=== PATIENT | male | born 1965 | race Caucasian/White ===

== ENCOUNTER → 2021-12-14 | Outpatient (CLI) | payer BC ==
[2021-12-14 17:56] LABS: Basophils # (A) 0.12 X 10*3/uL (0.00-0.10); Basophils % (A) 0.9 %; Eosinophils # (A) 0.23 X 10*3/uL (0.04-0.35); Eosinophils % (A) 1.7 %; HCT 49.4 % (39.6-50.0); HGB 16.6 g/dL (13.0-17.0); Immature Grans, Automated 0.3 %; Lymphocytes # (A) 2.63 X 10*3/uL (0.90-5.00); MCH 34.1 pg (27.0-32.0); MCHC 33.6 g/dL (32.0-37.0); MCV 101.4 fL (80.0-97.0); Mean Platelet Volume 9.9 fL (9.5-12.2); Monocytes % (A) 5.3 %; NRBC Per 100 WBC 0 /100 WBCS (0.0-0.0); Neutrophils # (A) 9.43 X 10*3/uL (1.80-7.70); Neutrophils % (A) 71.8 %; Platelet Count 268 X 10*3/uL (140-440); RBC 4.87 X 10*6/uL (4.40-5.60); RDW 13.1 % (11.5-14.5); WBC 13.15 X 10*3/uL (4.50-10.00)
[2021-12-14 18:16] LABS: % Iron Saturation 31.39 (15.00-50.00); Albumin 4.5 g/dL (3.8-4.9); Albumin/Globulin Ratio 1.55 (1.60-3.17); Anion Gap 11.5 mmol/L (10.00-18.00); BUN/Creat Ratio 10.4 Ratio (12.00-20.00); Blood Urea Nitrogen 15.6 mg/dL (9.0-27.0); Calcium 9.2 mg/dL (8.7-10.3); Carbon Dioxide 24.5 mmol/L (20.0-27.5); Globulin 2.9 g/dL (1.6-3.3); Magnesium 2.2 mg/dL (1.5-2.4); Non-African American GFR(CKD) 50.9 (60.0-200.0); Potassium 4.1 mmol/L (3.5-5.5); Total Bilirubin 0.8 mg/dL (0.30-1.20); Total Protein 7.4 g/dL (6.2-8.2); Uric Acid 5.6 mg/dL (3.7-8.7)
[2021-12-14 21:33] LABS: Microalbumin Creatinine Ratio <30 mg/g Creat (0-30); Urine Creatinine 51.1 mg/dL (39.0-259.0)
[2021-12-15 14:25] LABS: T4/T8 Ratio (CD4:CD8) 2.2 (1.0-3.7)
== END | disposition home or self-care (01) ==
LOC: LABWHC1 12:38
PROVIDERS: ATTEND Internal Medicine Infectious Disease
DX: N18.31 Chronic kidney disease, stage 3a (principal); B20 Human immunodeficiency virus [HIV] disease
CPT/HCPCS: 36415; 80053; 82043; 82306; 82570; 82728; 83540; 83550; 83735; 83970; 84100; 84550; 85025; 86334; 86335; 86360; 87536

== ENCOUNTER → 2022-01-04 | Outpatient (CLI) | payer BC ==
--- NOTE | 2022-01-04 11:38 | US ---
EXAMINATION TYPE: US kidneys/renal and bladder DATE OF EXAM: 01/04/2022 COMPARISON: NONE CLINICAL HISTORY: N18.31 STAGE 3 CKD. EXAM MEASUREMENTS: Right Kidney: 13.3 x 7.6 x 6.6 cm Left Kidney: 16.4 x 6.2 x 6.1 cm Right Kidney: Multiple scattered cysts obscuring normal renal tissue. Some of the cysts demonstrates hypoechogenicity the largest measuring up to 4.1 x 2.9 cm. Largest three measured: 1. Upper 6.0 x 5.8 x 6.3cm 2. Mid/lateral 6.9 x 7.1 x 6.5cm 3. Lower with septations 4.6 x 4.8 x 6.1cm Left Kidney: Multiple scattered cysts obscuring normal renal tissue. Largest 2 measured: 1. Medial with septations 14.6 x 9.6 x 12.0cm 2. Upper 7.9 x 6.4 x 8.4cm Bladder: wnl Bilateral Jets seen: Yes There is no evidence for hydronephrosis at this point in time. No nephrolithiasis is seen. The urin wero bladder is anechoic. Bilateral ureteral jets are seen. IMPRESSION: 1. Hypoechoic cysts seen within the right kidney which are indeterminate. Further evaluation with MR I with IV contrast is recommended. 2. Multiple anechoic renal cysts bilaterally.
== END | disposition home or self-care (01) ==
LOC: RADUSWWP 10:00
PROVIDERS: ATTEND Internal Medicine Nephrology
DX: N18.31 Chronic kidney disease, stage 3a (principal)
CPT/HCPCS: 76770

== ENCOUNTER → 2022-05-02 | Outpatient (CLI) | payer BC ==
[2022-05-02 12:54] LABS: Appearance,Urine Clear (Clear); Bilirubin,Urine Negative (Negative); Blood,Urine Trace (Negative); Color,Urine Yellow; Glucose,Urine (UA) Negative (Negative); Ketones,Urine Negative (Negative); Leukocyte Esterase,Urine Negative (Negative); Nitrite,Urine Negative (Negative); Protein,Urine Negative (Negative); RBC,Urine 3 /hpf (0-5); Specific Gravity,Urine 1.015 (1.001-1.035); Urobilinogen,Urine <2.0 mg/dL (<2.0); WBC,Urine 1 /hpf (0-5)
[2022-05-02 18:38] LABS: Basophils # (A) 0.12 X 10*3/uL (0.00-0.10); Basophils % (A) 1.4 %; Eosinophils # (A) 0.46 X 10*3/uL (0.04-0.35); Eosinophils % (A) 5.4 %; HGB 16.8 g/dL (13.0-17.0); Immature Grans, Automated 0.1 %; Lymphocytes % (A) 36.6 %; MCH 32.6 pg (27.0-32.0); MCHC 32.9 g/dL (32.0-37.0); MCV 98.8 fL (80.0-97.0); Mean Platelet Volume 10.2 fL (9.5-12.2); Monocytes # (A) 0.67 X 10*3/uL (0.20-1.00); Monocytes % (A) 7.9 %; NRBC Per 100 WBC 0 /100 WBCS (0.0-0.0); Neutrophils # (A) 4.11 X 10*3/uL (1.80-7.70); Neutrophils % (A) 48.6 %; Platelet Count 233 X 10*3/uL (140-440); RBC 5.16 X 10*6/uL (4.40-5.60); RDW 12.4 % (11.5-14.5); WBC 8.47 X 10*3/uL (4.50-10.00)
[2022-05-02 19:02] LABS: ALT 24 U/L (10-49); AST 19 U/L (14-35); African American GFR (CKD) 50.8 (60.0-200.0); Albumin 4.6 g/dL (3.8-4.9); Albumin/Globulin Ratio 1.77 (1.60-3.17); Alkaline Phosphatase 68 U/L (41-126); BUN/Creat Ratio 10.76 Ratio (12.00-20.00); Blood Urea Nitrogen 18.3 mg/dL (9.0-27.0); Calcium 9.5 mg/dL (8.7-10.3); Chloride 103 mmol/L (96-109); Chol/HDL Ratio 2.59 Ratio; Globulin 2.6 g/dL (1.6-3.3); Glucose 88 mg/dL (70-110); LDL Cholesterol,Calculated 52.8 mg/dL (0.0-131.0); Non-African American GFR(CKD) 43.8 (60.0-200.0); Potassium 4.9 mmol/L (3.5-5.5); Sodium 138 mmol/L (135-145); Total Protein 7.2 g/dL (6.2-8.2); VLDL Calculation 15.34 mg/dL (5.00-40.00)
[2022-05-02 20:06] LABS: Microalbumin Creatinine Ratio <30 mg/g Creat (0-30)
[2022-05-03 12:43] LABS: Free Kappa Lt Chain Qnt, Serum 4.85 mg/dL (0.33-1.94); Free Lambda Lt Chain Qnt, Seru 3.12 mg/dL (0.57-2.63)
== END | disposition home or self-care (01) ==
LOC: LABWHC1 11:32
PROVIDERS: ATTEND Nurse Practitioner Family
DX: Z12.5 Encounter for screening for malignant neoplasm of prostate (principal); I12.9 Hypertensive chronic kidney disease with stage 1 through stage 4 chronic kidney disease, or unspecified chronic kidney disease; N18.31 Chronic kidney disease, stage 3a; N39.0 Urinary tract infection, site not specified; B20 Human immunodeficiency virus [HIV] disease; R80.9 Proteinuria, unspecified
CPT/HCPCS: 36415; 80053; 80061; 81001; 82043; 82570; 83883; 84153; 84443; 85025; 86334; 86335

== ENCOUNTER → 2022-07-12 | Outpatient (CLI) | payer BC ==
--- NOTE | 2022-07-12 14:29 | CT ---
EXAMINATION TYPE: CT abdomen wo con CT DLP: 493.9 mGycm, Automated exposure control for dose reduction was used. DATE OF EXAM: 07/12/2022 12:50 PM COMPARISON: None. 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 Sagittal and coronal reformats were created on a separate works tation. Contrast used: None Oral contrast used: without Oral Contrast FINDINGS: LOWER CHEST: Unremarkable ABDOMEN LIVER: Unremarkable GALLBLADDER AND BILE DUCTS: Layering increased densities within the lumen consistent with gallstones are present. PANCREAS: Unremarkable. SPLEEN: Unremarkable. ADRENAL GLANDS: Unremarkable. KIDNEYS AND URETERS: No evidence of hydronephrosis or renal calculus. The ureters are unremarkable. Bilateral renal cysts are present which are suboptimally evaluated on noncontrast exam. The largest m easuring up to 7.8 cm on the right and 8.1 cm on the left. There is at least one calcification presen t in the right kidney which could be within the cyst wall. STOMACH AND BOWEL: Moderate hiatal hernia. No evidence of bowel obstruction. Scattered colonic divert icula. The appendix is normal. PERITONEUM/RETROPERITONEUM: No evidence of pneumoperitoneum or free fluid. VASCULATURE: Mild atherosclerotic calcifications are present throughout the abdominal aorta and its b ranches. No evidence of aortic aneurysm. MUSCULOSKELETAL: No acute osseous abnormalities. Mild disc degeneration changes are present throughou t the thoracolumbar spine. LYMPH NODES: No gross evidence for lymphadenopathy. SOFT TISSUE/ABDOMINAL WALL: Unremarkable IMPRESSION: 1. Bilateral renal cysts which are suboptimally evaluated on this noncontrast CT. Consider MRI renal mass protocol for initial screening/surveillance. No obstructive uropathy. 2. Small hiatal hernia. 3. Colonic diverticulosis.
--- NOTE | 2022-07-13 20:58 | MR ---
EXAMINATION TYPE: MR angio head wo/neck wo/w con DATE OF EXAM: 07/12/2022 2:55 PM CLINICAL INDICATION:Male, 56 years old with history of Q61.2 POLYCYSTIC KIDNEY; Aneurysm COMPARISON: None Technical: MRA brain: 3-D [id number] Axial with MIP and 3-D reconstruction. Performed on a separate workstat ion. MRA neck: Multiplanar, multi-sequence imaging as well as [id number] and phase was performed extra cranial vasculature of the neck. 3-D reformatted images and maximum intensity projection reformatted images were submitted for evaluation, these are performed on a separate workstation. IV Contrast: 9 cc Gadavist Findings: Vertebral arteries: The vertebral arteries are patent. Codominant vertebral artery is dominant. Basilar artery: The basilar artery is intact. The basilar artery bifurcation is normal. Internal Carotid arteries: The cervical, petrous, cavernous and supraclinoid segments are normal. RADHA: Patent with no evidence of aneurysm. ACOM: Present without evidence of aneurysm. MCA: Patent with no evidence of aneurysm. [employer]: Patent with no evidence of aneurysm. PCOM: Hypoplastic bilaterally. RIGHT CAROTID SYSTEM: The common carotid artery is patent. The carotid bifurcations demonstrates no e vidence for hemodynamically significant stenosis. The internal carotid artery is patent. LEFT CAROTID SYSTEM: The common carotid artery is patent. The carotid bifurcations demonstrates no e vidence for hemodynamically significant stenosis. The internal carotid artery is patent. The origins of the great vessels and vertebral arteries appear unremarkable. IMPRESSION: 1. No evidence of intracranial aneurysm or significant stenosis. 2. No evidence of significant stenosis at the carotid bifurcations. The carotid and vertebral arteri es are patent. 3. No evidence aneurysm.
== END | disposition home or self-care (01) ==
LOC: RADCTMAIN 12:34
PROVIDERS: ATTEND Internal Medicine Nephrology
DX: K44.9 Diaphragmatic hernia without obstruction or gangrene (principal); Q61.2 Polycystic kidney, adult type; K57.30 Diverticulosis of large intestine without perforation or abscess without bleeding
CPT/HCPCS: 74150; 70544; 70549; A9585

== ENCOUNTER → 2022-08-31 | Outpatient (CLI) | payer BC ==
[2022-09-01 02:18] LABS: Basophils # (A) 0.15 X 10*3/uL (0.00-0.10); Basophils % (A) 1.5 %; Eosinophils # (A) 0.37 X 10*3/uL (0.04-0.35); Eosinophils % (A) 3.7 %; HCT 51.8 % (39.6-50.0); HGB 16.8 g/dL (13.0-17.0); Immature Grans, Automated 0.2 %; Lymphocytes # (A) 2.45 X 10*3/uL (0.90-5.00); Lymphocytes % (A) 24.5 %; MCH 32.4 pg (27.0-32.0); MCHC 32.4 g/dL (32.0-37.0); MCV 99.8 fL (80.0-97.0); Mean Platelet Volume 10.1 fL (9.5-12.2); Monocytes # (A) 0.55 X 10*3/uL (0.20-1.00); Monocytes % (A) 5.5 %; NRBC Per 100 WBC 0 /100 WBCS (0.0-0.0); Neutrophils # (A) 6.46 X 10*3/uL (1.80-7.70); Neutrophils % (A) 64.6 %; Platelet Count 259 X 10*3/uL (140-440); RBC 5.19 X 10*6/uL (4.40-5.60); RDW 11.9 % (11.5-14.5)
[2022-09-01 02:30] LABS: % Iron Saturation 21.95 (15.00-50.00)
[2022-09-01 02:39] LABS: African American GFR (CKD) 50.8 (60.0-200.0); Albumin 4.6 g/dL (3.8-4.9); Albumin/Globulin Ratio 1.65 (1.60-3.17); Anion Gap 12.8 mmol/L (10.00-18.00); BUN/Creat Ratio 11.29 Ratio (12.00-20.00); Blood Urea Nitrogen 19.2 mg/dL (9.0-27.0); Calcium 9.9 mg/dL (8.7-10.3); Carbon Dioxide 21.7 mmol/L (20.0-27.5); Globulin 2.8 g/dL (1.6-3.3); Magnesium 2.1 mg/dL (1.5-2.4); Non-African American GFR(CKD) 43.8 (60.0-200.0); Phosphorus 2.8 mg/dL (2.4-5.1); Potassium 4.2 mmol/L (3.5-5.5); Total Bilirubin 0.6 mg/dL (0.30-1.20); Total Protein 7.3 g/dL (6.2-8.2)
[2022-09-01 04:14] LABS: Appearance,Urine Clear (Clear); Bilirubin,Urine Negative (Negative); Blood,Urine Negative (Negative); Color,Urine Yellow (Yellow); Ketones,Urine Negative (Negative); Nitrite,Urine Negative (Negative); PH, Urine 5.5 (5.0-8.0); Specific Gravity,Urine 1.017 (1.001-1.030); Urobilinogen,Urine 0.2 (0.2,1.0)
[2022-09-01 12:16] LABS: T4/T8 Ratio (CD4:CD8) 2.1 (1.0-3.7)
[2022-09-01 14:21] LABS: HIV-1 RNA DETECTED (Not detected); HIV-1 RNA, Quant 33 Copies/mL (<20); LOG HIV Copies/mL 1.52 (<1.30)
== END | disposition home or self-care (01) ==
LOC: LABWHC1 15:08
PROVIDERS: ATTEND Internal Medicine Infectious Disease
DX: B20 Human immunodeficiency virus [HIV] disease (principal); N18.31 Chronic kidney disease, stage 3a; E55.9 Vitamin D deficiency, unspecified; N25.81 Secondary hyperparathyroidism of renal origin; M10.9 Gout, unspecified; N39.0 Urinary tract infection, site not specified; D63.1 Anemia in chronic kidney disease
CPT/HCPCS: 36415; 80053; 81003; 82043; 82570; 82728; 83540; 83550; 83735; 83970; 84100; 85025; 86360; 87536

== ENCOUNTER → 2023-01-01 | Outpatient (CLI) | payer BC ==
[2023-01-01 16:27] LABS: Appearance,Urine Clear (Clear); Bilirubin,Urine Negative (Negative); Blood,Urine Negative (Negative); Color,Urine Yellow (Yellow); Ketones,Urine Negative (Negative); Nitrite,Urine Negative (Negative); PH, Urine 5.5; Specific Gravity,Urine 1.018 (1.001-1.030); Urobilinogen,Urine 0.2 E.U./DL
[2023-01-01 16:39] LABS: % Iron Saturation 29.41 (15.00-50.00); Albumin 4.2 d/dL (3.8-4.9); BUN/Creat Ratio 10.69 Ratio (12.00-20.00); Blood Urea Nitrogen 17.1 mg/dL (9.0-27.0); Calcium 9.4 mg/dL (8.7-10.3); Carbon Dioxide 24.1 mmol/L (21.6-31.8); Chloride 108 mmol/L (96-109); Glucose 87 mg/dL (70-110); Iron 95 UG/DL (65-175); Potassium 4.4 mmol/L (3.5-5.5); Sodium 142 mmol/L (135-145); Total Iron Binding Capacity 323 UG/DL (228-460); Uric Acid 5.8 mg/dL (3.7-8.7)
[2023-01-01 17:10] LABS: Basophils # (A) 0.12 X 10*3/uL (0.00-0.10); Basophils % (A) 1.3 %; Eosinophils % (A) 5.6 %; HCT 50.1 % (39.6-50.0); HGB 16.6 d/dL (13.0-17.0); Lymphocytes # (A) 3.54 X 10*3/uL (0.90-5.00); Lymphocytes % (A) 39.4 %; MCH 33.1 pg (27.0-32.0); MCHC 33.1 d/dL (32.0-37.0); MCV 99.8 FL (80.0-97.0); Mean Platelet Volume 10.5 FL (9.5-12.2); Monocytes # (A) 0.54 X 10*3/uL (0.20-1.00); NRBC Per 100 WBC 0 X 10*3/uL (0.00-0.01); Neutrophils # (A) 4.26 X 10*3/uL (1.80-7.70); Neutrophils % (A) 47.5 %; Platelet Count 236 X 10*3/uL (140-440); RBC 5.02 X 10*6/uL (4.40-5.60); RDW 11.9 % (11.5-14.5); WBC 8.98 X 10*3/uL (4.50-10.00)
[2023-01-01 21:46] LABS: Microalbumin Creatinine Ratio <9 mg/g Cr (0-30)
== END | disposition home or self-care (01) ==
LOC: LABWHC1 12:23
PROVIDERS: ATTEND Internal Medicine Nephrology
DX: E55.9 Vitamin D deficiency, unspecified (principal); N18.31 Chronic kidney disease, stage 3a; M10.9 Gout, unspecified; D63.1 Anemia in chronic kidney disease; R80.9 Proteinuria, unspecified
CPT/HCPCS: 36415; 80048; 81003; 82040; 82043; 82306; 82570; 82728; 83540; 83550; 84550; 85025

== ENCOUNTER → 2023-05-21 | Outpatient (CLI) | payer OTHER ==
[2023-05-21 15:10] LABS: Basophils # (A) 0.09 X 10*3/uL (0.00-0.10); Basophils % (A) 0.8 %; Eosinophils # (A) 0.41 X 10*3/uL (0.04-0.35); Eosinophils % (A) 3.6 %; HCT 50.8 % (39.6-50.0); HGB 17.4 g/dL (13.0-17.0); Lymphocytes # (A) 4.29 X 10*3/uL (0.90-5.00); Lymphocytes % (A) 37.7 %; MCH 31.6 pg (27.0-32.0); MCHC 34.3 g/dL (32.0-37.0); MCV 92.2 FL (80.0-97.0); Mean Platelet Volume 10.2 FL (9.5-12.2); Monocytes # (A) 0.73 X 10*3/uL (0.20-1.00); Monocytes % (A) 6.4 %; NRBC Per 100 WBC 0 X 10*3/uL (0.00-0.01); Neutrophils # (A) 5.83 X 10*3/uL (1.80-7.70); Neutrophils % (A) 51.3 %; Platelet Count 231 X 10*3/uL (140-440); RBC 5.51 X 10*6/uL (4.40-5.60); RDW 13.9 % (11.5-14.5); WBC 11.37 X 10*3/uL (4.50-10.00)
[2023-05-21 15:39] LABS: BUN/Creat Ratio 12.27 Ratio (12.00-20.00); Blood Urea Nitrogen 18.4 mg/dL (9.0-27.0); Carbon Dioxide 25.2 mmol/L (21.6-31.8); Chloride 104 mmol/L (96-109); Chol/HDL Ratio 1.79 Ratio; Glucose 83 mg/dL (70-110); LDL Cholesterol,Calculated 35.8 mg/dL (0.0-131.0); Potassium 4.6 mmol/L (3.5-5.5); Sodium 141 mmol/L (135-145); VLDL Calculation 11.74 mg/dL (5.00-40.00)
[2023-05-21 15:40] LABS: ALT 18 U/L (10-49); AST 17 U/L (14-35); Albumin 4.4 g/dL (3.8-4.9); Albumin/Globulin Ratio 1.76 Ratio (1.60-3.17); Alkaline Phosphatase 78 U/L (41-126); Calcium 9.6 mg/dL (8.7-10.3); Globulin 2.5 g/dL (1.6-3.3); Total Bilirubin 0.9 mg/dL (0.3-1.2); Total Protein 6.9 g/dL (6.2-8.2)
== END | disposition home or self-care (01) ==
LOC: LABWHC1 11:28
PROVIDERS: ATTEND Internal Medicine
DX: Z12.5 Encounter for screening for malignant neoplasm of prostate (principal); B20 Human immunodeficiency virus [HIV] disease; E78.5 Hyperlipidemia, unspecified
CPT/HCPCS: 80061; 80053; 84443; 85025; 36415; G0103

== ENCOUNTER → 2023-09-24 | Outpatient (CLI) | payer OTHER ==
--- NOTE | 2023-09-24 10:29 | XR ---
EXAMINATION TYPE: XR elbow complete bilateral DATE OF EXAM: 09/24/2023 CLINICAL HISTORY: pain TECHNIQUE: Frontal, lateral and oblique images of the bilateral elbows are obtained. COMPARISON: None. FINDINGS: There is no acute fracture/dislocation evident of the elbow. No abnormal fat pad signs ar e seen. The overlying soft tissue appears unremarkable. IMPRESSION: There is no acute fracture or dislocation of the elbow. ICD 10 NO FRACTURE, INITIAL EVALUATION
[2023-09-24 15:04] LABS: Appearance,Urine Clear (Clear); Bilirubin,Urine Negative (Negative); Blood,Urine Trace (Negative); Color,Urine Yellow (Yellow); Ketones,Urine Negative (Negative); Nitrite,Urine Negative (Negative); Specific Gravity,Urine 1.014 (1.001-1.030); Urobilinogen,Urine 0.2 E.U./DL
[2023-09-24 15:12] LABS: Bacteria,Urine None Seen (None Seen)
[2023-09-24 15:41] LABS: % Iron Saturation 31.05 (15.00-50.00); ALT 30 U/L (10-49); AST 26 U/L (14-35); Albumin 4.6 g/dL (3.8-4.9); Alkaline Phosphatase 83 U/L (41-126); Blood Urea Nitrogen 17.4 mg/dL (9.0-27.0); Carbon Dioxide 24.9 mmol/L (21.6-31.8); Chloride 103 mmol/L (96-109); Globulin 2.7 g/dL (1.6-3.3); Glucose 109 mg/dL (70-110); Iron 109 UG/DL (65-175); Potassium 5.1 mmol/L (3.5-5.5); Sodium 138 mmol/L (135-145); Total Bilirubin 0.6 mg/dL (0.3-1.2); Total Iron Binding Capacity 351 UG/DL (228-460); Total Protein 7.3 g/dL (6.2-8.2); Uric Acid 5.1 mg/dL (3.7-8.7)
[2023-09-24 16:03] LABS: Basophils # (A) 0.15 X 10*3/uL (0.00-0.10); Basophils % (A) 1.5 %; Eosinophils # (A) 0.43 X 10*3/uL (0.04-0.35); Eosinophils % (A) 4.3 %; HCT 56.9 % (39.6-50.0); HGB 19.5 g/dL (13.0-17.0); Lymphocytes # (A) 2.75 X 10*3/uL (0.90-5.00); Lymphocytes % (A) 27.4 %; MCH 32.4 pg (27.0-32.0); MCHC 34.3 g/dL (32.0-37.0); MCV 94.5 FL (80.0-97.0); Mean Platelet Volume 10.1 FL (9.5-12.2); Monocytes # (A) 0.79 X 10*3/uL (0.20-1.00); Monocytes % (A) 7.9 %; NRBC Per 100 WBC 0 X 10*3/uL (0.00-0.01); Neutrophils % (A) 58.6 %; Platelet Count 259 X 10*3/uL (140-440); RBC 6.02 X 10*6/uL (4.40-5.60); RDW 13.5 % (11.5-14.5); WBC 10.05 X 10*3/uL (4.50-10.00)
[2023-09-24 19:25] LABS: Microalbumin Creatinine Ratio <15 mg/g Cr (0-30); Urine Creatinine 80.3 mg/dL (39.0-259.0)
[2023-09-24 21:29] LABS: Magnesium 2.2 mg/dL (1.5-2.4); Phosphorus 2.7 mg/dL (2.4-5.1)
[2023-09-25 14:33] LABS: C. trachomatis,PCR Negative (Negative)
[2023-09-25 14:56] LABS: N. gonorrhoeae,PCR Negative (Negative)
== END | disposition home or self-care (01) ==
LOC: LABWHC1 08:56
PROVIDERS: ATTEND Internal Medicine
DX: N50.89 Other specified disorders of the male genital organs (principal); W57.XXXA Bitten or stung by nonvenomous insect and other nonvenomous arthropods, initial encounter
CPT/HCPCS: 36415; 80053; 81001; 82043; 82306; 82570; 82728; 83540; 83550; 83735; 84100; 84550; 85025; 86592; 86618; 86780; 87491; 87591

== ENCOUNTER → 2023-09-24 | Outpatient (CLI) | payer OTHER | END | disposition home or self-care (01) | LOC: LABWHC1 09:02 | PROVIDERS: ATTEND Nurse Practitioner Family | DX: N18.31 Chronic kidney disease, stage 3a (principal) ==

== ENCOUNTER → 2024-03-05 | Outpatient (CLI) | payer OTHER ==
--- NOTE | 2024-03-05 11:41 | XR ---
EXAMINATION TYPE: XR chest 2V DATE OF EXAM: 03/05/2024 10:24 AM COMPARISON: None CLINICAL INDICATION: Male, 58 years old with history of R06.89 OTHER ABNORMALITIES OF BREATHING R05.8 COUGH, , TECHNIQUE: Frontal and lateral views FINDINGS: Heart normal size. Aorta and pulmonary vasculature within normal limits. Mild patchy density posterio r base on the lateral view. No other consolidation or pleural effusion. IMPRESSION: COPD. There is some mild patchy atelectasis versus early infiltrate at the posterior base on the late ral view. [facility], , 03/05/2024 11:39 AM
== END | disposition home or self-care (01) ==
LOC: RADXRMAIN 09:58
PROVIDERS: ATTEND Internal Medicine
DX: J44.9 Chronic obstructive pulmonary disease, unspecified (principal); R06.89 Other abnormalities of breathing
CPT/HCPCS: 71046